=== PATIENT | male | born 1995 | race Caucasian/White ===

== ENCOUNTER 2017-09-11 00:33 | Emergency (ER) | payer BC ==
[~2017-09-11] VITALS: Ht 182.9 cm; Wt 79.4 kg
[~2017-09-11 00:33] MED LIST: ALBU17AE3; CEPH500C PO; FLUT1DIS26; MNTL10T; ONDA8TAB6 PO; SULF1TAB34 PO; [UNRECOGNIZED DRUG - CODE]
--- OUTSIDE RECORDS SUMMARY | 2017-09-11 00:40 | XMS REPORT | Continuity of Care Document ---
Demographics Preferred Language Unknown Marital Status Unknown Temple Affiliation Unknown Race Unknown Ethnic Group Unknown Author Author [facility] Address Unknown Phone Unavailable Allergies There is no data. Medications There is no data. Problems Date Dx Coded Attending Type Code Diagnosis Diagnosed By 05/20/2012 313.81 CD OPPOSITIONAL DEFIANT 05/20/2012 314.01 ADHD COMBINED 05/20/2012 313.81 CD OPPOSITIONAL DEFIANT 05/20/2012 314.01 ADHD COMBINED 05/20/2012 313.81 CD OPPOSITIONAL DEFIANT 05/20/2012 314.01 ADHD COMBINED 05/20/2012 313.81 CD OPPOSITIONAL DEFIANT 05/20/2012 314.01 ADHD COMBINED 08/16/2012 311 DEPRESSIVE DISORDER NOS Procedures Code [place] [id number] PSYCH FAMILY TX W/PAT 07/07/2012 83301 PSYCH FAMILY TX W/PAT 07/19/2012 41087 INDIV PSYTX 45/50 MIN 07/26/2012 02463 PSYCH FAMILY TX NO PATIENT 08/17/2012 Results There is no data. Encounters ACCT No. Visit Date/Time Discharge Status Pt. Type Provider Facility Loc./Unit Complaint [id number] 08/16/2012 15:01:00 08/16/2012 23:59:59 CLS Outpatient [id number] 07/26/2012 12:51:00 07/26/2012 23:59:59 CLS Outpatient [id number] 07/15/2012 12:51:00 07/15/2012 23:59:59 CLS Outpatient [id number] 07/07/2012 09:45:00 07/07/2012 23:59:59 CLS Outpatient
[2017-09-11] MEDS ORDERED: LACTATED RINGERS 1,000 ML IV ONE (00:51)
--- NOTE | 2017-09-11 00:57 | ED Psychosocial ---
General Stated Complaint: DUMAS,SEEING FLASHING LIGHT,TOOK A DAB Source: patient, family (mother) Exam Limitations: no limitations History of Present Illness Date Seen by Provider: Sep 11, 2017 Time Seen by Provider: 00:47 Initial Comments Patient presents to ER by private conveyance with his mother with a chief complaint that about 45 minutes prior to arrival he was over a friend's house and took a dab of concentrated THC oil and rubbed it on his gums. However he started feeling weird like his head was slowing down and he describes it as if his head usually flashes at 27 frames per second it now feels like 5 or 6 frames per second. He denies pain, nausea, tenderness anywhere. He says he has not used THC about for 5 months. He does not drink alcohol and denies cigarettes but he does vape. He has said he has not had any alcohol tonight. He is afraid the THC may have been adulterated with acid. He denies any hallucinations either audio or visual. No other medical history. He does not take any medicines. He does not have allergies to medicines except for penicillin. Allergies and Home Medications Allergies Coded Allergies: No Known Allergies (Unverified Allergy, Mild, 04/24/09) Home Medications Albuterol 17 Gm Inh, (Reported) Cephalexin Monohydrate 500 Mg Capsule, 1 EACH PO TID, #20 Ref 0 Prescribed by: LUZ FRAZIER on 11/16/112026 Fluticasone/Salmeterol 1 Disk Inhp, (Reported) Montelukast Sodium 10 Mg Tab, (Reported) Sulfamethoxazole/Trimethoprim 1 Each Tablet, 1 EACH PO, (Reported) Constitutional: No chills, No fever, No malaise EENTM: No ear discharge, No ear pain, No tearing, No vision loss, No nose congestion, No nose pain Respiratory: No cough, No short of breath Cardiovascular: No chest pain, No palpitations Gastrointestinal: No abdominal pain, No constipation, No diarrhea, No nausea Genitourinary: No discharge, No dysuria Musculoskeletal: No joint pain, No muscle pain Past Guizlwo-Tuiowp-Fbjhpl Hx Patient Social History Recent Foreign Travel: No Contact w/Someone Who Travel: No Physical Exam Vital Signs Vital Sign - Last 12Hours 09/11/17 00:55 Temp 98.0 Pulse 118 Resp 20 B/P (MAP) 126/92 (103) Pulse Ox 96 O2 Delivery Room Air Capillary Refill : General Appearance: WD/WN, no apparent distress HEENT: PERRL/EOMI, normal ENT inspection, TMs normal, pharynx normal, other ( no evidence of head trauma) Neck: non-tender, full range of motion, supple, normal inspection Respiratory: chest non-tender, lungs clear, normal breath sounds, no respiratory distress, no accessory muscle use Cardiovascular: normal peripheral pulses, regular rate, rhythm, no edema Peripheral Pulses: 2+ Radial Pulses (R), 2+ Radial Pulses (L) Gastrointestinal: normal bowel sounds, non tender, soft, no organomegaly Extremities: normal inspection, no pedal edema, normal capillary refill Neurologic/Psychiatric: alert, oriented x 3, other (GCS is 15.) Appearance/Memory: appropriate appearance, appropriate insight, neat, no memory impairment Behavior/Eye Contact: cooperative, good eye contact, normal speech Thoughts/Hallucinations: normal thought pattern, no apparent hallucination Skin: normal color, warm/dry Progress/Results/Core Measures Results/Orders Lab Results Laboratory Tests Test 09/11/17 01:02 Range/Units White Blood Count 9.2 4.3-11.0 10^3/uL Red Blood Count 5.23 4.35-5.85 10^6/uL Hemoglobin 16.5 13.3-17.7 G/DL Hematocrit 45 40-54 % Mean Corpuscular Volume 86 80-99 FL Mean Corpuscular Hemoglobin 32 25-34 PG Mean Corpuscular Hemoglobin Concent 37 H 32-36 G/DL Red Cell Distribution Width 11.7 10.0-14.5 % Platelet Count 263 130-400 10^3/uL Mean Platelet Volume 10.3 7.4-10.4 FL Neutrophils (%) (Auto) 54 42-75 % Lymphocytes (%) (Auto) 33 12-44 % Monocytes (%) (Auto) 5 0-12 % Eosinophils (%) (Auto) 7 0-10 % Basophils (%) (Auto) 1 0-10 % Neutrophils # (Auto) 5.0 1.8-7.8 X 10^3 Lymphocytes # (Auto) 3.1 1.0-4.0 X 10^3 Monocytes # (Auto) 0.5 0.0-1.0 X 10^3 Eosinophils # (Auto) 0.6 H 0.0-0.3 10^3/uL Basophils # (Auto) 0.1 0.0-0.1 10^3/uL Sodium Level 139 135-145 MMOL/L Potassium Level 3.7 3.6-5.0 MMOL/L Chloride Level 105 98-107 MMOL/L Carbon Dioxide Level 18 L 21-32 MMOL/L Anion Gap 16 H 5-14 MMOL/L Blood Urea Nitrogen 17 7-18 MG/DL Creatinine 1.20 0.60-1.30 MG/DL Estimat Glomerular Filtration Rate > 60 BUN/Creatinine Ratio 14 Glucose Level 131 H 70-105 MG/DL Calcium Level 8.9 8.5-10.1 MG/DL Total Bilirubin 0.6 0.1-1.0 MG/DL Aspartate Amino Transf (AST/SGOT) 26 5-34 U/L Alanine Aminotransferase (ALT/SGPT) 25 0-55 U/L Alkaline Phosphatase 65 40-136 U/L Total Protein 7.2 6.4-8.2 GM/DL Albumin 4.5 3.2-4.5 GM/DL Salicylates Level < 5.0 L 5.0-20.0 MG/DL Acetaminophen Level < 10 L 10-30 UG/ML Serum Alcohol < 10 <10 MG/DL My Orders Orders - RENAN PEDERSON Ua Culture If Indicated (09/11/17 00:51) Cbc With Automated Diff (09/11/17 00:51) Comprehensive Metabolic Panel (09/11/17 00:51) Alcohol (09/11/17 00:51) Drug Screen Stat (Urine) (09/11/17 00:51) Acetaminophen (09/11/17 00:51) Salicylate (09/11/17 00:51) Ekg Tracing (09/11/17 00:51) Saline Lock/Iv-Start (09/11/17 00:51) Monitor-Rhythm Ecg Trace Only (09/11/17 00:51) Lactated Ringers (Lr 1000 Ml Iv Solution (09/11/17 00:51) Medications Given in ED Current Medications Medications Dose Ordered Sig/Adelita Route Start Time Stop Time Status Last Admin Dose Admin Lactated Ringer's 1,000 ml @ 0 mls/hr Q0M ONCE IV 09/11/17 00:51 09/11/17 00:55 DC 09/11/17 01:08 1,000 MLS/HR Vital Signs/I&O Vital Sign - Last 12Hours 09/11/17 00:55 Temp 98.0 Pulse 118 Resp 20 B/P (MAP) 126/92 (103) Pulse Ox 96 O2 Delivery Room Air Progress Note #1: Time: 00:56 Progress Note We will give him some fluids to try and dilute this as well as contact poison control get an EKG and some blood and urine. Progress Note #2: Time: 03:06 Progress Note The patient states he is no longer having any symptoms and is calm down. Seems acute is having an anxiety attack. He's not been able to produce any urine and he prefer to just go ahead and go home at this time. He is medically cleared to go home from my standpoint. ECG Initial ECG Impression Date: Sep 11, 2017 Consults Consults : Consults Notes [place] poison control: Departure Impression Impression: Primary Impression: Anxiety attack Additional Impression: Drug abuse Disposition: 01 HOME, SELF-CARE Condition: Improved Departure-Patient Inst. Decision time for Depature: 03:07 Referrals: VINCENT FRAZIER MD (PCP/Family) Primary Care Physician Patient Instructions: Drug Abuse and Drug Addiction (DC) Add. Discharge Instructions: Return to care if you begin to have difficulty urinating or unable to urinate after drinking copious amounts of fluids. Drink lots and lots of fluids to help flush her system today. Get some sleep. Copy Copies To 1: VINCENT FRAZIER MD, TITUS J Sep 11, 2017 00:57
[2017-09-11 01:08] LABS: BASOPHILS # (AUTO) 0.1 10^3/uL (0.0-0.1); BASOPHILS % (AUTO) 1 % (0-10); EOSINOPHILS # (AUTO) 0.6 10^3/uL (0.0-0.3); EOSINOPHILS % (AUTO) 7 % (0-10); HEMATOCRIT 45 % (40-54); HEMOGLOBIN 16.5 G/DL (13.3-17.7); LYMPHOCYTES # (AUTO) 3.1 X 10^3 (1.0-4.0); LYMPHOCYTES % (AUTO) 33 % (12-44); MEAN CORPUSCULAR HEMOGLOBIN 32 PG (25-34); MEAN CORPUSCULAR HGB CONC 37 G/DL (32-36); MEAN CORPUSCULAR VOLUME 86 FL (80-99); MEAN PLATELET VOLUME 10.3 FL (7.4-10.4); MONOCYTES # (AUTO) 0.5 X 10^3 (0.0-1.0); MONOCYTES % (AUTO) 5 % (0-12); NEUTROPHILS % (AUTO) 54 % (42-75); PLATELET COUNT 263 10^3/uL (130-400); RED BLOOD COUNT 5.23 10^6/uL (4.35-5.85); RED CELL DISTRIBUTION WIDTH 11.7 % (10.0-14.5); WHITE BLOOD COUNT 9.2 10^3/uL (4.3-11.0)
[2017-09-11 01:37] LABS: ALANINE AMINOTRANSFERASE 25 U/L (0-55); ALBUMIN 4.5 GM/DL (3.2-4.5); ALKALINE PHOSPHATASE 65 U/L (40-136); BILIRUBIN,TOTAL 0.6 MG/DL (0.1-1.0); BUN/CREATININE RATIO 14; CALCIUM 8.9 MG/DL (8.5-10.1); CARBON DIOXIDE 18 MMOL/L (21-32); CHLORIDE 105 MMOL/L (98-107); GFR ESTIMATED > 60; GLUCOSE 131 MG/DL (70-105); POTASSIUM 3.7 MMOL/L (3.6-5.0); SALICYLATE < 5.0 MG/DL (5.0-20.0); SODIUM 139 MMOL/L (135-145); TOTAL PROTEIN 7.2 GM/DL (6.4-8.2)
[2017-09-11 01:38] LABS: ACETAMINOPHEN < 10 UG/ML (10-30)
[2017-09-11 03:20] VITALS: BP 126/88
== END 2017-09-11 03:20 | disposition home or self-care (01) ==
LOC: EDUNIT# 00:33 → ER 00:37
DX: F41.9 Anxiety disorder, unspecified (principal); F19.10 Other psychoactive substance abuse, uncomplicated
CPT/HCPCS: 36415; 80053; 80320; 80329; 85025; 93005; 93041; 96360